=== PATIENT | female | born 1990 | race Caucasian/White ===

== ENCOUNTER → 2019-09-02 11:37 | Outpatient (BNVA) | payer OTHER, MEDICAID, SELFPAY | PROVIDERS: Family Provider Family Medicine; PCP Family Medicine; Visit Provider Nurse Practitioner Family | DX: N39.0 Urinary tract infection, site not specified (principal); N94.9 Unspecified condition associated with female genital organs and menstrual cycle; N76.0 Acute vaginitis | CPT/HCPCS: 80053; 81000; 87086; 87491; 87591; 87661 ==

== ENCOUNTER 2019-11-15 14:35 | Inpatient (IN) | payer BC, MEDICAID, SELFPAY ==
[2019-11-15] VITALS (19 sets, daily range): BP systolic 0–141; BP diastolic 0–79; PULSE 61–92; RESP 16–18; TEMP 36.7–36.9; O2SAT 98; BMI 32.2
[2019-11-15] MEDS: lactated ringers 1,000 ML 999 ML IV (16:30)
[2019-11-15 16:31] LABS: Basophils % 0.4 %; Eosinophils # 0.1 10^3/uL (0.0-0.8); Eosinophils % 0.5 %; Hematocrit 41.8 % (37.0-47.0); Hemoglobin 13.7 g/dL (11.5-15.3); Lymphocytes # 2.4 10^3/uL (0.8-4.8); Lymphocytes % 24.5 %; Mean Corpuscular HGB Conc 32.8 g/dL (30.0-36.0); Mean Corpuscular Hemoglobin 29.8 pg (28.0-34.0); Mean Corpuscular Volume 91.1 fL (81-99); Mean Platelet Volume 11.8 fL (7.4-10.4); Monocytes # 0.8 10^3/uL (0.2-0.9); Monocytes % 7.5 %; Neutrophils # 6.66 10^3/uL (1.8-7.7); Neutrophils % 66.8 %; Nucleated Red Blood Cells % 0 %; Platelet Count 231 10^3/cmm (130-400); Red Blood Count 4.59 10^6/uL (4.1-5.3); Red Cell Distribution Width 12.3 % (12.1-15.1)
[2019-11-15] MEDS: oxytocin 30 UNIT/500 ML BAG 600 UNIT IV (17:05)
[2019-11-15] MEDS: lidocaine 2% INJ 20 mL INJECTION (17:06)
--- NOTE | 2019-11-15 17:13 | PM.DELIVERY ---
Delivery Note: Date of delivery: November 15, 2019 Pre-Delivery Course: The patient had routine care at [facility]. She has blood type O+ antibody negative, rubella immune, GC chlamydia negative, hepatitis B surface antigen negative, hepatitis C antibody negative, HIV negative. She was GBS negative. There were no complications during the . Delivery: Normal spontaneous vaginal delivery This is a 29-year-old G4, P2102 at 38 weeks 2 days gestation who presented to labor and delivery complaining of contractions. The patient has had a prior section for breech presentation and also a 5 years ago. She was scheduled for repeat on the . When she presented she was 3 cm 50% effaced ballotable with regular contractions approximately every 2 to 3 minutes. I was in [place] at the time and the left for [place]. On recheck an hour later the patient had slight change she was now 3 to 4 cm and 60% effaced. She was complaining of the contractions being stronger. Decision was made to go ahead and proceed with repeat section as soon as I arrived at the hospital. The patient had spontaneous rupture of membranes with thin meconium less than 1 hour prior to delivery. She then made rapid change and by the time I reached the hospital she was . She had a normal spontaneous vaginal delivery of a viable female infant weight 2555 g, 5 pounds 10 ounces. Apgars 8 and 9. The was suctioned at delivery and placed on the mother's chest. The cord was clamped and cut. The placenta was delivered grossly intact and normal to inspection. There was a left labial laceration that was sutured using 3-0 chromic. Mother and were doing well after delivery. Estimated blood loss 150 mL. A&P Assessment and plan (1) , delivered: Routine care Status: Acute Coding Level of Care Code Acute Property Management Accountant for Chg Fwd Diagnoses , delivered O34.219
--- NOTE | 2019-11-15 17:53 | PC.NURSE ---
1620 PT STATES POSSIBLE LEAKING FLUID, VE DONE, VAGINAL VAULT WET NOT BAG OF FLUID FELT, POSSIBLE LEAKING.
--- NOTE | 2019-11-15 18:49 | PC.NURSE ---
1830 PT UP TO BATHROOM AND THEN MOVED UP TO 206, ORIENTED TO ROOM, CALL LIGHT AND WILL GO OVER PP PACK SHORTL WITH HER.
[2019-11-16 00:45] VITALS: BP 128/72; PULSE 72; RESP 16
[2019-11-16 03:30] VITALS: BP 108/64; PULSE 64; RESP 16
[2019-11-16 05:34] LABS: Hematocrit 39.8 % (37.0-47.0); Hemoglobin 12.7 g/dL (11.5-15.3); Mean Corpuscular HGB Conc 31.9 g/dL (30.0-36.0); Mean Corpuscular Hemoglobin 29.5 pg (28.0-34.0); Mean Corpuscular Volume 92.3 fL (81-99); Mean Platelet Volume 11.9 fL (7.4-10.4); Platelet Count 218 10^3/cmm (130-400); Red Blood Count 4.31 10^6/uL (4.1-5.3); Red Cell Distribution Width 12.4 % (12.1-15.1); White Blood Count 13.7 10^3/uL (4.0-10.0)
[2019-11-16] MEDS: docusate sodium 100 mg Capsule PO (10:01)
[2019-11-16] MEDS: prenatal vitamin Capsule 1 CAP PO (10:01)
[2019-11-16 10:17] VITALS: BP 108/70; PULSE 82; RESP 16; TEMP 36.8
--- NOTE | 2019-11-16 12:39 | P.DS_ITS ---
Discharge Providers Date of Admission: 11/15/19 14:35 Date of Discharge: November 16, 2019 Attending Provider at Admission: Elida Peters MD Attending Provider at Discharge: Elida Peters MD Primary Care Provider: Shane Lazo MD Diagnoses at Discharge Discharge Diagnosis (1) , delivered: Status: Acute Hospital Course Hospital Course: This is a 29-year-old G4 now P3 who presented to labor and delivery complaining of contractions. She was a prior section and prior with plans for a repeat section. However her labor progressed rather quickly and she had a vaginal delivery of a viable female . Mother and infant did well after delivery. Mother was ambulating, tolerating a regular diet, had good pain control, had decreased vaginal bleeding and was requesting discharge home Physical Exam Const: COMMON NORMALS: no acute distress, patient oriented x3 and alert GENERAL APPEARANCE: cooperative and comfortable HENMT: COMMON NORMALS: normocephalic and atraumatic HEAD & SCALP: normocephalic and atraumatic Eye: COMMON NORMALS: Equal, round and reactive pupils present and EOMs intact bilaterally PUPIL: Yes Equal, round and reactive pupils present Chest: COMMONS NORMALS: normal inspection of the chest Resp: COMMON NORMALS: normal respiratory effort and No retractions Cardio: COMMON NORMALS: regular rate and regular rhythm RATE: regular rate RHYTHM: regular rhythm GI: COMMON NORMALS: non-tender and no masses INSPECTION: Yes other (Fundus firm U- 3) Extremity: GENERAL: No calf tenderness and No edema Neuro: COMMON NORMALS: patient oriented x3 SENSORIUM/ORIENTATION: Yes alert Discharge Data Data Completed and Pending: Labs from last 24 hours 11/16/19 11/15/19 05:00 16:15 WBC 13.7 H 10.0 RBC 4.31 4.59 Hgb 12.7 13.7 Hct 39.8 41.8 MCV 92.3 91.1 MCH 29.5 29.8 MCHC 31.9 32.8 RDW 12.4 12.3 Plt Count 218 231 MPV 11.9 H 11.8 H Neut % (Auto) 66.8 Lymph % (Auto) 24.5 [place] % (Auto) 7.5 Eos % (Auto) 0.5 Baso % (Auto) 0.4 Neut # (Auto) 6.66 Lymph # (Auto) 2.4 [place] # (Auto) 0.8 Eos # (Auto) 0.1 Baso # (Auto) 0.0 Nucleated RBC % (a uto) 0 Nucleated RBCs # 0.0 Vitals: Last Vital Signs Temp 98.2 F 11/16/19 10:17 Pulse 82 11/16/19 10:17 Resp 16 11/16/19 10:17 BP 108/70 11/16/19 10:17 Pulse Ox 98 11/15/19 20:30 Discharge Plan Discharge Patient Disposition: Home Condition: Stable Prescriptions: Continued prenat.vits,elena,[id number] Tablet 1 tab PO DAILY RF: 0 Discharge Orders: Discharge Order (Routine); Ordered 11/16/19 Ordered By: Elida Peters Discharge Diet: Usual diet Discharge Activity: Limit activity as instructed Discharge Attestations Time Spent in Discharge Care*: less than 30 min Quality Metrics Clinical Quality Measures During this hospital stay, did patient experience: None Coding Level of Care Code Acute Medical Radiation Dosimetrist for Nathalie Fwd Diagnoses , delivered O38.034
[2019-11-16 17:59] VITALS: BP 112/76; PULSE 91; RESP 16; TEMP 36.9; O2SAT 98
[2019-11-16 18:33] VITALS: BP 112/76; PULSE 91; RESP 16; TEMP 36.9; O2SAT 98
== END 2019-11-16 18:45 | disposition home or self-care (01) | DRG 807 ==
PROVIDERS: Admitting Provider Family Medicine; Family Provider Family Medicine; PCP Family Medicine; Visit Provider Family Medicine
DX: O34.219 Maternal care for unspecified type scar from previous cesarean delivery (principal); Z37.0 Single live birth; Z3A.38 38 weeks gestation of pregnancy; O77.0 Labor and delivery complicated by meconium in amniotic fluid; O70.0 First degree perineal laceration during delivery
CPT/HCPCS: 12345; 36415; 59025; 85025; 85027; 99211; G0379

== ENCOUNTER 2021-02-18 13:02 | Emergency (ER) | payer BC, MEDICAID, SELFPAY ==
[2021-02-18 13:39] VITALS: BP 121/84; PULSE 82; RESP 18; TEMP 36.7; O2SAT 99; BMI 27.4
[2021-02-18 14:54] LABS: Add Urine Microscopic? YES; Bilirubin Urine Neg (Negative); Blood Urine 3+ (Negative); Glucose Urine UA Norm (Normal); HCG Qualitative Urine. Positive (Negative); Ketones Urine Negative (Negative); Leukocyte Esterase Urine Negative (Negative); Nitrate Urine Negative (Negative); Protein Urine Neg (Negative); Specific Gravity, Urine 1.005 (1.005-1.030); Urine Appearance Clear (CLEAR); Urine Color Colorless (Yellow); Urobilinogen Urine Norm (Negative); pH Urine 7 (5-7)
[2021-02-18 15:04] LABS: Add Urine Culture? No; Bacteria Urine TRACE /hpf; Squamous Epithelial Cell Urine 0-4 /hpf (0-5)
--- NOTE | 2021-02-18 15:30 | W.ED.FEMALGU ---
HPI - Female Genitourinary General: Chief complaint: Urogenital-Female Stated complaint: vaginal bleeding Time Seen by Provider: 02/18/21 15:30 History of Present Illness: HPI Narrative: Ms. Wolfe is a 30-year-old lady without significant past medical history presents emergency department due to concern for vaginal bleeding during . She reports 5 prior pregnancies and did have prior miscarriage with one of them, no other complications with the other pregnancies. Last menstrual period was sometime at the end of November no she is unsure of exactly what day. She did have a positive sometime at the start of January. Starting last night had cramping associated with vaginal bleeding. Overall this is light and she is only soaked through 2 pads today. No associated lightheadedness, infectious symptoms, or changes in health. No other specific exacerbating or alleviating factors identified. Date of Last Menstrual Period: 12/23/20 Review of Systems General: Reports: 10 or more systems reviewed and unremarkable except in HPI and below PFSH ED PFSH: Social History Smoking and tobacco status: never smoked Female Reproductive History: Date of last menstrual period: 12/23/20 Physical Exam Narrative: EXAM NARRATIVE: GENERAL/CONSTITUTIONAL - well-appearing. No acute distress. Eyes -no scleral icterus, no conjunctival injection ENMT - Atraumatic external nose and ears. Moist mucous membranes NECK - supple. trachea midline CARDIOVASCULAR - regular rate and regular rhythm. Normal peripheral perfusion. RESPIRATORY -clear to auscultation bilaterally. No retractions or accessory muscle use. ABDOMEN/GI - Nontender/Nondistended. No right or left lower quadrant tenderness. No tenderness to percussion or evidence of peritonitis PELVIC - performed with managed services sales consultant present. Normal external genitalia. Speculum exam performed with small amount of venous bleeding present, cervical os appears open with small amounts of mucus/blood/clots/tissue present. MSK - Extremities without obvious deformity or tenderness to palpation SKIN - Warm, Dry NEURO - alert and appropriately oriented. Moves all extremities equally. Course ED course: - Patient was seen and evaluated by me at bedside - Patient placed on cardiac monitors, IV access obtained - Initial evaluation notable for no acute distress, nontoxic appearance. Benign abdominal exam. - Labs notable for normal hemoglobin. hCG is elevated. Urinalysis without evidence of urinary tract infection. - Ebama-vf-kaur ultrasound performed without definitive gestational sac identified, there does appear to be mixed echogenic debris within the uterus, no evidence of free fluid. - Given pelvic exam findings suggestive of incomplete in combination with benign abdominal exam I do not feel that formal ultrasound is needed at this time. Patient has close follow-up. I explained need for trending of hCG - Upon serial reexamination after treatment the patient was similar - Based on patient history, evaluation, labs, and imaging as interpreted the most likely cause of the patient's condition is incomplete - The results of ED evaluation were discussed with the patient including prescriptions and/or symptomatic cares (if applicable) including appropriate and responsible use, followup plan, and return precautions. The patient verbalized understanding and felt safe for discharge. - Patient discharged in satisfactory condition. Vital Signs: Vital signs: Vital Signs Temperature 98.1 F 02/18/21 13:39 Pulse Rate 81 02/18/21 17:27 Respiratory Rate 16 02/18/21 15:46 Blood Pressure 121/73 02/18/21 17:27 Pulse Oximetry 98 02/18/21 17:27 MDM - Female Medical Records: Attestation: I reviewed the patient's medical records. Lab Data: Attestation: I reviewed the patient's lab results. Labs: Lab Results 02/18/21 02/18/21 02/18/21 14:00 14:00 15:48 Hgb Hct HCG, Qual Positive H (Negative) Ser , Paul i-Qnt Urine Color Colorless (Yellow) Urine Appearance Clear (CLEAR) Urine pH 7 (5-7) Ur Specific Gravit y 1.005 (1.005-1.030) Urine Protein Neg (Negative) Urine Glucose (UA) Norm (Normal) Urine Ketones Negative (Negative) Urine Blood 3+ H (Negative) Urine Nitrate Negative (Negative) Urine Bilirubin Neg (Negative) Urine Urobilinogen Norm mg/dL mg/dL (Negative) Ur Leukocyte Jenn ase Negative (Negative) Urine RBC 5-10 /hpf H /hpf (0-2) Urine WBC None /hpf /hpf (0-5) Ur Squamous Epith Cells 0-4 /hpf H /hpf (0-5) Amorphous Sediment Not Reportable Urine Bacteria Trace /hpf /hpf (NONE) Blood Type O Positive Rho(D) Type Positive 02/18/21 02/18/21 15:48 15:48 Hgb 14.4 g/dL g/dL (11.5-15.3) Hct 44.4 % % (37.0-47.0) HCG, Qual Ser , Paul i-Qnt 3649.00 mIU/mL mI U/mL Urine Color Urine Appearance Urine pH Ur Specific Gravit y Urine Protein Urine Glucose (UA) Urine Ketones Urine Blood Urine Nitrate Urine Bilirubin Urine Urobilinogen Ur Leukocyte Jenn ase Urine RBC Urine WBC Ur Squamous Epith Cells Amorphous Sediment Urine Bacteria Blood Type Rho(D) Type Discharge Plan Discharge Patient Disposition: Home Clinical Impression: Incomplete miscarriage Condition: Stable Prescriptions: No Action Vitamin Plus Low Iron 27 mg iron- 1 mg tablet 1 tab PO BEDTIME RF: 0 Discharge Orders: Discharge ED (Routine); Ordered 02/18/21 Ordered By: Rony Vaughan Referrals: Shane Lazo MD [Primary Care Provider] - Discharge Diet: Usual diet Discharge Activity: Resume usual activity Patient Instructions: Miscarriage (ED) Activity Restrictions/Additional Instructions: Thank you for visiting the emergency department. You were seen and evaluated for vaginal bleeding during . It appears that you have had a miscarriage with open cervical os and passage of products of conception. You still require follow-up with an ampoule filler as discussed. Please call them on Sunday. Return to the emergency department for worsening symptoms or anything else that you are concerned about and feel needs emergency department evaluation. Coding Level of Care Code ED Assistant Construction Superintendent for Nathalie Dolan
[2021-02-18 15:46] VITALS: BP 118/82; PULSE 80; RESP 16; O2SAT 97
[2021-02-18 16:06] LABS: Hematocrit 44.4 % (37.0-47.0); Hemoglobin 14.4 g/dL (11.5-15.3)
[2021-02-18 17:27] VITALS: BP 121/73; PULSE 81; O2SAT 98
== END 2021-02-18 17:27 | disposition home or self-care (01) ==
PROVIDERS: Emergency Provider Emergency Medicine; PCP Family Medicine
DX: O03.4 Incomplete spontaneous abortion without complication (principal)
CPT/HCPCS: 36415; 81001; 81025; 84702; 85014; 85018; 86900; 87210; 99283

== ENCOUNTER 2022-01-18 12:01 | Inpatient (IN) | payer BC, MEDICAID, SELFPAY ==
[2022-01-18] VITALS (46 sets, daily range): BP systolic 87–129; BP diastolic 49–86; PULSE 62–98; RESP 15; TEMP 35.5–36.8; O2SAT 98–100; BMI 30.5
--- NOTE | 2022-01-18 12:17 | US_ITS ---
WS: [id number] Obstetrical ultrasound, limited. HISTORY: Evaluate for demise. COMPARISON: 10/06/2021. Single intrauterine gestation is present in breech position. The cervix is partially obscured by the fetus but does appear closed. No cardiac activity or movement is identified. On several images there does appear to be body w all edema and thickening of the soft tissues. No significant amount of amniotic fluid. There is one s jennifer maximal pocket of fluid measuring 15 mm. US/US OB limited [id number] IMPRESSION: 1. demise. No cardiac activity or movement is identified. 2. Breech. 3. Severe oligohydramnios. Patient's nurse was present during the examination and aware of report.
[2022-01-18 13:16] LABS: Basophils # 0.1 10^3/uL (0.0-0.1); Basophils % 0.5 %; Eosinophils # 0.1 10^3/uL (0.0-0.8); Eosinophils % 0.6 %; Hemoglobin 12.9 g/dL (11.5-15.3); Lymphocytes # 2.1 10^3/uL (0.8-4.8); Lymphocytes % 22.2 %; Mean Corpuscular HGB Conc 33.1 g/dL (30.0-36.0); Mean Corpuscular Volume 90.7 fl (81-99); Mean Platelet Volume 11.2 fL (7.4-10.4); Monocytes # 0.6 10^3/uL (0.2-0.9); Monocytes % 6.7 %; Neutrophils # 6.44 10^3/uL (1.8-7.7); Neutrophils % 69.5 %; Nucleated Red Blood Cells % 0 %; Platelet Count 222 10^3/cmm (130-400); Red Cell Distribution Width 13.2 % (12.1-15.1); White Blood Count 9.3 10^3/uL (4.0-10.0)
[2022-01-18] MEDS: oxytocin 30 UNIT/500 ML BAG IV (13:24)
[2022-01-18] MEDS: dextrose 5%-lactated ringers 1,000 ML 125 ML IV (13:24)
--- NOTE | 2022-01-18 15:45 | ANES.PREANE2 ---
Pre-Anesthetic Assessment Height/Weight: Height 1.63 m Weight 80.739 kg Temp Pulse Resp BP Pulse Ox O2 Del Method 97.3 F L 74 15 93/54 99 01/18/22 12:10 01/18/22 15:39 01/18/22 12:16 01/18/22 15:39 01/18/22 15:38 01/18/22 11:45 Familial anesthetic complications: none Was Beta Navid taken within 24 hours: N/A Was Clonidine taken within 24 hours: N/A Social No alcohol and No tobacco Exam alert, oriented x 3, clear to auscultation bilaterally and regular rate & rhythm Airway Submandibular: within normal limits Cervical ROM: within normal limits Mallampati: Class II Dentition: full Anesthetic Plan ASA status: 2 Anesthesia: Regional (specify below) (labor epidural) Other: demise Medications/Allergies Home Medications Medication Instructions Recorded Confirmed Last Taken Type vitamin with calcium 1 tab PO BEDTIME 02/18/21 02/18/21 02/17/21 History no.72-iron 27 mg-folic acid 1 mg tablet ( Vitamins Plus Low Iron) Allergies Allergy/AdvReac Type Severity Reaction Status Date / Time No Known Allergies Allergy Verified 01/18/22 13:38 Current Medications Generic Name Dose Route Start Last Admin Trade Name Freq PRN Reason Stop Dose Admin Dextrose/Lactated Ringer's 1,000 mls @ 125 mls/hr 01/18/22 12:30 01/18/22 13:24 Dextrose 5%-Lactated Ringers IV 125 mls/hr .Q8H FARNAZ Administration Oxytocin 30 unit in 500 mls @ 1 mls/hr 01/18/22 12:30 01/18/22 14:56 Pitocin IV 7 milliunit/min .Q24H FARNAZ 7 mls/hr Titration Protocol 1 MILLIUNIT/MIN PFSH Anesthesia Social History Smoking and tobacco status: never smoked Female Reproductive History Date of last menstrual period: 12/23/20 : 6 Data Anesthesia : 01/18/22 12:27 Short CBC 01/18/22 Range/Units 12:27 WBC 9.3 (4.0-10.0) 10^3/uL Hgb 12.9 (11.5-15.3) g/dL Hct 39.0 (37.0-47.0) % MCV 90.7 (81-99) fl Plt Count 222 (130-400) 10^3/cmm Neut % (Auto) 69.5 % Neut # (Auto) 6.44 (1.8-7.7) 10^3/uL Cardiac Studies: No Data to Display
--- NOTE | 2022-01-18 16:29 | P.HP_ITS ---
Providers/Chief Complaint Admitting Physician: Tee Bales MD Primary Care Provider: Shane Lazo MD Chief Complaint: demise HPI MEDICAL APPOINTMENT CLERK History of Present Illness Abbey Wolfe is a 31 year old female 6 para 3-1-1-3 at 37 weeks estimated gestational age who presented to my office today complaining that she had not felt the baby move in a day. As a part of her evaluation no heart tones were noted. I then performed a bedside ultrasound which did not demonstrate any heart tones. Also demonstrated the baby was in breech position. Due to the patient's history of a , we discussed the option for performing a versus an induction. The patient was notified, and arrangements were made for the patient to be induced. Due to her history of C- section, we chose to induce her with Pitocin. The patient also mentioned that she wanted permanent sterilization earlier in her . She has made it very clear that she continues to desire permanent sterilization despite the devastating outcome of this Present Details : 6 Para: 4 Date of Last Menstrual Period: 12/23/20 Calculated Date of Delivery: 09/29/21 Gestational Age Based on Last Menstrual Period: 56 Labs Rubella: Immune RPR: Negative GBS: Negative Review of Systems General: Reports: 10 or more systems reviewed and unremarkable except in HPI and below Const: Reports: fatigue; Denies: fever(s) Eyes: Denies: change in vision Card: Denies: chest pain Musc: Reports: back pain Elvis/Lymph: Denies: easy bruising Medications/Allergies Home Medications Medication Instructions Recorded Confirmed Last Taken Type vitamin with calcium 1 tab PO BEDTIME 02/18/21 02/18/21 02/17/21 History no.72-iron 27 mg-folic acid 1 mg tablet ( Vitamins Plus Low Iron) Allergies Allergy/AdvReac Type Severity Reaction Status Date / Time No Known Allergies Allergy Verified 01/18/22 13:38 PFSH MEDICAL APPOINTMENT CLERK PFSH: Surgical History (Updated 01/18/22 @ 16:39 by Tee Bales MD) Previous section Social History Smoking and tobacco status: never smoked Vitals/I&O/Wt Last Vital Signs Temp 97.3 F L 01/18/22 12:10 Pulse 76 01/18/22 16:26 Resp 15 01/18/22 12:16 BP 119/71 01/18/22 16:26 Pulse Ox 100 01/18/22 15:53 O2 Del Method 01/18/22 11:45 01/18/22 01/18/22 01/18/22 06:59 14:59 22:59 Intake Total 8.500 / 8.500 Balance 8.500 / 8.500 Weight last 48 hrs Weight 178 lb Physical Exam Const: COMMON NORMALS: patient oriented x3 and alert HENMT: COMMON NORMALS: moist oral mucous membranes HEAD & SCALP: normal to inspection Chest: COMMONS NORMALS: normal inspection of the chest Resp: COMMON NORMALS: clear to auscultation bilaterally AUSCULTATION: clear to auscultation bilaterally Cardio: COMMON NORMALS: regular rate and regular rhythm RATE: regular rate RHYTHM: regular rhythm GI: INSPECTION: Yes normal to inspection and Yes other (Gravid) Extremity: COMMON NORMALS: normal to inspection GENERAL: Yes edema (Trace) Neuro: COMMON NORMALS: patient oriented x3, moves all extremities and no sensory deficits noted SENSORIUM/ORIENTATION: Yes alert Psych: COMMON NORMALS: mental status grossly normal Skin: COMMON NORMALS: no rashes or lesions noted GENERAL SKIN EXAM: no rashes or lesions noted Urinary Catheter Management: Butler: Cath Placed During This Visit: yes Urinary Catheter Date of Insertion: 01/18/22 Urinary Catheter Time of Insertion: 16:07 Data : 01/19/22 05:39 A&P Assessment and plan (1) 37 weeks gestation of : (2) demise > 22 weeks, delivered, current hospitalization: We will proceed with a Pitocin induction. Ultrasound did show some skin sloughing, so I does discussed with the patient and her family that the baby may have some breakdown. Pitocin has been ramped up. An amniotomy has been performed. Meconium was noted. The patient is either natalee or complete breech, and I anticipate we will perform a vaginal breech delivery. (3) Breech presentation: (4) Sterilization consult: We discussed the patient's desire for permanent sterilization earlier in her . At that time she elected to proceed with a tubal ligation. A consent form was signed. We once again reviewed the risks of a tubal ligation including the risks of bleeding, infection, and damage intra-abdominal organs. We also discussed a 1 and 200 chance of becoming again, and the increased risk of an ectopic despite a successful tubal ligation. Attestations Medical Necessity Statement*: Routine hospital stay for vaginal delivery and care is anticipated. Coding Level of Care Code Acute Hospice Volunteer Coordinator for Chg Fwd Exam Comprehensive Diagnoses 37 weeks gestation of Z3A.37 demise > 22 weeks, delivered, current hospitalization O36.4XX0 Breech presentation O32.1XX0 Sterilization consult Z30.09
--- NOTE | 2022-01-18 17:13 | P.PCNOB_ITS ---
Delivery Note: Date of delivery: January 18, 2022 Pre-delivery diagnoses: 31-year-old 6 at 37 weeks estimated gestational age with demise Post-delivery diagnoses: Status post breech delivery of a male who suffered demise Delivering Physician: Tee Bales Estimated blood loss (mL): 50 Pre-Delivery Course: The patient presented to the hospital after being noted to have a demise my office. She was placed on Pitocin. An epidural was placed. An amniotomy was performed. The patient then progressed to complete without difficulty. Her was unremarkable. Her blood type was O+. Her antibody screen was negative. Her glucose screen was 117. She was GBS negative. Rubella was found to be immune. The remainder of her labs were within normal limits. Her anatomic survey performed at 20 weeks was within normal limits. Delivery: DELIVERY: The patient progressed to complete without difficulty. She delivered a male with a weight of 4 pounds 14 ounces.. The baby was delivered from the complete breech position without difficulty and placed on the mother's abdomen. The cord was then clamped and cut. There was no nuchal cord. Thick meconium was noted. The was noted to have some sloughing skin of his scrotum as well as on his trunk. The placenta and 3 vessel cord were delivered intact shortly thereafter. The perineum and vaginal vault were carefully examined. No lacerations were noted. Both the mother was in stable condition. Cord blood was largely coagulated blood but was obtained for typing. Please see nurses notes for all measurements of the infant. The did not have any obvious abnormalities with exception of skin sloughing on the trunk and the scrotum. The placenta, umbilical cord, and the was examined carefully to look for potential causes of the demise, and none were found. Post-Delivery Status: Good A&P Assessment and plan (1) 37 weeks gestation of : (2) Breech delivery: I anticipate the mother will have an unremarkable course. She continues to desire a tubal ligation. I discussed options, alternatives, as well as risks of a tubal ligation with the patient. She assures me that this is the right choice for her regardless of the demise. I discussed all options with the mother and her family. They are aware that we can get Miguel, their , with a mortuary, or also consider having a autopsy. At this time I am going to let them have some space and give them the opportunity to decide what they want to do later. Coding Level of Care Code Acute Fire Code Inspector for Chg Fwd Diagnoses 37 weeks gestation of Z3A.37 Breech delivery O32.1XX0
--- NOTE | 2022-01-18 17:32 | ANES.PROC ---
Anesthesia Procedures Procedure/Date: 01/18/22 Epidural: Time Out Performed: Yes Consents Signed: Procedure Consent Consent: requested by attending/covering physician, from patient, risks and benefits reviewed and patient agrees to proceed Lumbar Level: L4-L5 Epidural position: sitting Epidural procedure: sterile prep of area, 1% lidocaine to numb the area, 18 g needle, neg for paresthesia, test dose given (5mls 2% lido), placed PCEA, no systemic response, sterile dressing applied and 0.2% Ropiavacaine @ mls/hr (13) Additional Comments: ESTUARDO at 5cm, cath at 10cm
--- NOTE | 2022-01-18 17:33 | ANE.PACU2 ---
Inpatient post-anesthesia follow up: Airway intact: Yes Vital signs: Temperature 97.3 F Pulse Rate 79 Respiratory Rate 15 Blood Pressure 115/71 Pulse Oximetry 100 Oxygen Delivery Me thod Room Air Oxygen Flow Rate Fraction of Inspir ed Oxygen Hydration adequate: Yes Nausea and vomiting: No Pain level: 2 Mental status: Baseline
--- NOTE | 2022-01-18 18:25 | PC.NURSE ---
Neetu, from lab contacted by this RN to notify her that baby demise cord blood was sent down. Order was filed under mothers account. CHERRIE DANIELS
--- NOTE | 2022-01-18 18:47 | PC.NURSE ---
Wolfe baby boy demise measurements: weight 4#14oz, length 18.5 , head 12.5 chest 11 AR RN
--- NOTE | 2022-01-18 18:49 | PC.NURSE ---
Mother educated on demise paperwork by this RN. CHERRIE RN
--- NOTE | 2022-01-18 19:11 | PC.NURSE ---
[facility] contacted by this RN per mother's choice for services for baby boy. CHERRIE DANIELS
[2022-01-18] MEDS: docusate sodium 100 mg Capsule PO (20:10)
[2022-01-18] MEDS: ibuprofen 800 mg tablet PO (20:11)
[2022-01-18] MEDS: benzocaine-menthol 78 gm Canister 1 SPRAY TOPICAL (20:11)
[2022-01-19] VITALS (17 sets, daily range): BP systolic 97–126; BP diastolic 52–85; PULSE 54–85; RESP 14–18; TEMP 36.2–36.8; O2SAT 96–100
--- NOTE | 2022-01-19 01:59 | PC.NURSE ---
[facility] left unit with Baby Christopher Wolfe at 0134 for transport to home at pts request.
[2022-01-19 05:55] LABS: Hemoglobin 13.4 g/dL (11.5-15.3); Mean Corpuscular HGB Conc 33.5 g/dL (30.0-36.0); Mean Corpuscular Hemoglobin 30.5 pg (28.0-34.0); Mean Corpuscular Volume 91.1 fl (81-99); Platelet Count 221 10^3/cmm (130-400); Red Blood Count 4.39 10^6/uL (4.1-5.3); Red Cell Distribution Width 13.3 % (12.1-15.1); White Blood Count 11.4 10^3/uL (4.0-10.0)
[2022-01-19] MEDS: ibuprofen 800 mg tablet PO ×2 (09:46→13:44)
--- NOTE | 2022-01-19 10:45 | PC.NURSE ---
Pt to OR for tubal ligation per stretcher and surgery crew.
--- NOTE | 2022-01-19 11:18 | P.DS_ITS ---
Discharge Providers UNDER WATER ASSISTANT Date of Admission: 01/18/22 12:01 Date of Discharge: 01/19/22 Attending Provider at Admission: Tee Bales MD Attending Provider at Discharge: Tee Bales MD Primary Care Provider: Shane Lazo MD Diagnoses at Discharge Discharge Diagnosis (1) 37 weeks gestation of : Status: Acute (2) demise > 22 weeks, delivered, current hospitalization: Status: Acute (3) Breech presentation: Status: Acute (4) Sterilization consult: Details from hospital stay: I discussed with the patient at length my concern about her having a tubal ligation after having the demise. She was very clear that she had had the plans to do this tubal ligation amount of what and that the circumstances surrounding this delivery do not change her mind. I also encouraged her to wait 6 weeks to have a tubal ligation to give her a chance to think. She once again declined stating that she was competent this is the right thing for her to do regardless of the circumstances surrounding her delivery. Status: Acute Reason for Visit Reason for Visit: demise Hospital Course Hospital Course The patient presented to the hospital for induction due to a demise at 37 weeks estimated gestational age. Her induction was initiated with Pitocin. An epidural was placed. An amniotomy was performed. An unremarkable breech delivery occurred. There was no obvious cause for the demise. The following day, the patient had a tubal ligation. Information Peripartum Data: Delivery Method: Vaginal Physical Exam Narrative: The patient is alert. She appears comfortable. Her heart has a regular rate and rhythm with no murmurs appreciated. Lungs are clear to auscultation bilaterally. Her fundus is firm and below the umbilicus. Urinary Catheter Management: [place]: Cath Placed During This Visit: yes Urinary Catheter Date of Insertion: 01/18/22 Urinary Catheter Time of Insertion: 16:07 Discharge Data Studies Completed and Pending Completed Studies During Hospitalization Category Date Time Status US OB limited [id number] Stat Ultrasound 01/18/22 12:17 Completed Radiology Impressions Obstetrics Ultrasound 01/18/22 12:17 IMPRESSION: 1. demise. No cardiac activity or movement is identified. 2. Breech. 3. Severe oligohydramnios. Patient's nurse was present during the examination and aware of report. Laboratory Results WBC 11.4 10^3/uL (4.0-10.0) H 01/19/22 05:39 RBC 4.39 10^6/uL (4.1-5.3) 01/19/22 05:39 Hgb 13.4 g/dL (11.5-15.3) 01/19/22 05:39 Hct 40.0 % (37.0-47.0) 01/19/22 05:39 MCV 91.1 fl (81-99) 01/19/22 05:39 MCH 30.5 pg (28.0-34.0) 01/19/22 05:39 MCHC 33.5 g/dL (30.0-36.0) 01/19/22 05:39 RDW 13.3 % (12.1-15.1) 01/19/22 05:39 Plt Count 221 10^3/cmm (130-400) 01/19/22 05:39 MPV 11.0 fL (7.4-10.4) H 01/19/22 05:39 Neut % (Auto) 69.5 % 01/18/22 12: Lymph % (Auto) 22.2 % 01/18/22 12: [place] % (Auto) 6.7 % 01/18/22 12: Eos % (Auto) 0.6 % 01/18/22 12: Baso % (Auto) 0.5 % 01/18/22 12: Neut # (Auto) 6.44 10^3/uL (1.8-7.7) 01/18/22 12: Lymph # (Auto) 2.1 10^3/uL (0.8-4.8) 01/18/22 12:27 [place] # (Auto) 0.6 10^3/uL (0.2-0.9) 01/18/22 12: Eos # (Auto) 0.1 10^3/uL (0.0-0.8) 01/18/22 12: Baso # (Auto) 0.1 10^3/uL (0.0-0.1) 01/18/22 12:27 Nucleated RBC % (auto) 0 % 01/18/22 12: Nucleated RBCs # 0.0 /100WBC 01/18/22 12:27 Procedures Performed Breech vaginal delivery minilaparotomy bilateral tubal ligation Vitals Last Vital Signs Temp 97.2 F L 01/19/22 11:14 Pulse 66 01/19/22 11:14 Resp 18 01/19/22 11:14 BP 102/60 01/19/22 11:14 Pulse Ox 98 01/19/22 11:14 O2 Del Method 01/19/22 11:14 Discharge Plan Discharge Patient Disposition: Home Condition: Stable Prescriptions: New ibuprofen 800 mg Tablet 800 mg PO TID Qty: 45 0RF hydrocodone-acetaminophen 5-325 mg Tablet 1 tab PO Q6H PRN (Reason: Moderate To Severe Pain) Qty: 10 0RF Continued Vitamin Plus Low Iron 27 mg iron- 1 mg tablet 1 tab PO BEDTIME Discharge Orders: Discharge Order (Routine); Ordered 01/19/22 Ordered By: Tee Bales Referrals: Tee Bales MD [Physician] - 1 week (May keep appt she already has with me.) Discharge Diet: Usual diet Discharge Activity: Limit activity as instructed Patient Instructions: Depression (DC), Stillbirth (DC), Bleeding (DC), Preeclampsia and Eclampsia After Delivery (GEN), Tubal Ligation (DC), Hemorrhage (DC), OB Discharge Report, OB Food/Drug Interaction Guide, OB Care at Home, Opioid Safety, OB Home Care, OB Vaginal Deliveries Discharge Attestations UNDER WATER ASSISTANT Time Spent in Discharge Care*: less than 30 min Coding Level of Care Code Acute Special Education Instructor for Chg Fwd Diagnoses 37 weeks gestation of Z3A.37 demise > 22 weeks, delivered, current hospitalization O36.4XX0 Breech presentation O32.1XX0 Sterilization consult Z30.09
[2022-01-19] MEDS: sodium chloride 0.9% 1,000 ML 30 ML IV (11:26)
--- NOTE | 2022-01-19 11:27 | ANES.PREANE2 ---
Pre-Anesthetic Assessment Height/Weight: Height 1.63 m Weight 80.739 kg Temp Pulse Resp BP Pulse Ox O2 Del Method 97.2 F L 66 18 102/60 98 01/19/22 11:14 01/19/22 11:14 01/19/22 11:14 01/19/22 11:14 01/19/22 11:14 01/19/22 11:14 Preop Diagnosis: tubal Operation Date: 01/19/22 11:30 Proposed Procedures p Bilateral Tubal Ligation(Bilateral) - Tee Bales MD Familial anesthetic complications: none Was Beta Navid taken within 24 hours: N/A Was Clonidine taken within 24 hours: N/A Last intake: Intake Last Liquid Date 01/19/22 Last Liquid Time 02:30 Last Solid Date 01/18/22 Last Solid Time 22:00 Social No alcohol and No tobacco Exam alert, oriented x 3, clear to auscultation bilaterally and regular rate & rhythm Airway Submandibular: within normal limits Cervical ROM: within normal limits Mallampati: Class II Dentition: full History/ROS No significant history except as noted Anesthetic Plan ASA status: 2 Anesthesia: General Other: 1 day Medications/Allergies Home Medications Medication Instructions Recorded Confirmed Last Taken Type vitamin with calcium 1 tab PO BEDTIME 02/18/21 02/18/21 02/17/21 History no.72-iron 27 mg-folic acid 1 mg tablet ( Vitamins Plus Low Iron) hydrocodone 5 mg-acetaminophen 325 1 tab PO Q6H PRN Moderate To 01/19/22 Unknown Rx mg tablet Severe Pain #10 tabs ibuprofen 800 mg tablet 800 mg PO TID #45 tabs 01/19/22 Unknown Rx Allergies Allergy/AdvReac Type Severity Reaction Status Date / Time No Known Allergies Allergy Verified 01/18/22 13:38 Current Medications Generic Name Dose Route Start Last Admin Trade Name Freq PRN Reason Stop Dose Admin Benzocaine 1 spray 01/18/22 17:30 01/18/22 20:11 Benzocaine-Menthol 78 Gm Canister TOPICAL 1 spray PRN PRN Administration PAIN Docusate Sodium 100 mg 01/18/22 18:00 01/18/22 20:10 Docusate Sodium 100 Mg Capsule PO 100 mg BID FARNAZ Administration Sodium Chloride 1,000 mls @ 30 mls/hr 01/19/22 11:30 01/19/22 11:26 Sodium Chloride 0.9% IV 01/20/22 11:29 30 mls/hr .Q24H FARNAZ Administration Ibuprofen 800 mg 01/18/22 21:00 01/19/22 09:46 Ibuprofen 800 Mg Tablet PO 800 mg TID FARNAZ Administration PFSH Anesthesia Surgical History (Updated 01/18/22 @ 16:39 by Tee Bales MD) Previous section Social History Smoking and tobacco status: never smoked Female Reproductive History Date of last menstrual period: 12/23/20 : 6 Data Anesthesia : 01/19/22 05:39 Short CBC 01/18/22 01/19/22 Range/Units 12:27 05:39 WBC 9.3 11.4 H (4.0-10.0) 10^3/uL Hgb 12.9 13.4 (11.5-15.3) g/dL Hct 39.0 40.0 (37.0-47.0) % MCV 90.7 91.1 (81-99) fl Plt Count 222 221 (130-400) 10^3/cmm Neut % (Auto) 69.5 % Neut # (Auto) 6.44 (1.8-7.7) 10^3/uL Cardiac Studies: No Data to Display
--- NOTE | 2022-01-19 13:20 | ANE.PACU2 ---
Inpatient post-anesthesia follow up: Airway intact: Yes Vital signs: Temperature 98.2 F Pulse Rate 55 Respiratory Rate 16 Blood Pressure 116/73 Pulse Oximetry 97 Oxygen Delivery Me thod Room Air Oxygen Flow Rate 6 Fraction of Inspir ed Oxygen Hydration adequate: Yes Nausea and vomiting: No Pain level: 2 Mental status: Baseline
[2022-01-19] MEDS: HYDROcodone-acetaminophen 5-325 mg Tablet PO (13:44)
--- NOTE | 2022-01-30 03:52 | PM.OP ---
Operative Report Date of procedure: December Pre-op diagnosis: female desiring sterilization Post-op diagnosis: Same Procedure done: minilaparotomy bilateral tubal ligation using a modified Steve technique Specimens removed/disposition: Bilateral fallopian tube segments with the right segment being tagged Pathology: Bilateral fallopian tube segments with the right segment being tagged Surgeon: Tee Bales Anesthesia: General Estimated blood loss (mL): 5 Procedure: The patient was brought back to the operating room where anesthesia was found to be adequate. 10 mL of 0.5% bupivacaine was then used to pre-anesthetize the area just inferior to the umbilicus. A #15 blade was then used to make a 3 cm transverse incision just inferior to the umbilicus. I then dissected down to the underlying subcutaneous tissue until arriving at the fascia. The fascia was then nicked with the scalpel. The fascial incision was extended manually. I identified the fundus of the uterus and followed it to the left fallopian tube. The fallopian tube was then followed to the fimbria. The tube was then ligated, cut, and cauterized in a modified [place] fashion using 0 chromic. The right fallopian tube was then identified and followed through to the fimbria. It was ligated, cut, and cauterized in similar fashion. The right fallopian tube was tagged. Both fallopian tubes had excellent hemostasis. The fascia was reapproximated using 0 Vicryl in running stitch. The subcutaneous tissue was carefully examined and no further bleeding was noted. The skin was then reapproximated using 4-0 Vicryl in a running subcuticular stitch. A sterile dressing was placed. All counts were correct x2. The patient was moved to the recovery room in stable condition.
== END 2022-01-19 15:15 | disposition home or self-care (01) | DRG 798 ==
PROVIDERS: Admitting Provider Family Medicine; PCP Family Medicine; Visit Provider Family Medicine
PROC: 0UB70ZZ Excision of Bilateral Fallopian Tubes, Open Approach (ICD-10-PCS; CPT 58605; principal; 2022-01-19 11:30)
DX: O36.4XX0 Maternal care for intrauterine death, not applicable or unspecified (principal); Z37.1 Single stillbirth; O32.1XX0 Maternal care for breech presentation, not applicable or unspecified; O34.219 Maternal care for unspecified type scar from previous cesarean delivery; O77.0 Labor and delivery complicated by meconium in amniotic fluid; Z3A.37 37 weeks gestation of pregnancy; Z87.59 Personal history of other complications of pregnancy, childbirth and the puerperium; Z30.2 Encounter for sterilization
CPT/HCPCS: 12345; 36415; 51702; 59409; 76815; 85025; 85027; 88302; J1100; J2250; J2405; J2590; J2704; J2710; J3010; J3490; J7030; J7121

== ENCOUNTER 2022-01-19 21:41 | Emergency (ER) | payer BC, MEDICAID, SELFPAY ==
[2022-01-19 22:07] VITALS: BP 113/75; PULSE 72; RESP 15; TEMP 36.1; O2SAT 97; BMI 30.5
[2022-01-19 23:25] LABS: Basophils % 0.3 %; Hemoglobin 13.3 g/dL (11.5-15.3); Lymphocytes # 1.8 10^3/uL (0.8-4.8); Lymphocytes % 13.9 %; Mean Corpuscular HGB Conc 31.7 g/dL (30.0-36.0); Mean Corpuscular Hemoglobin 30.4 pg (28.0-34.0); Mean Corpuscular Volume 95.9 fl (81-99); Monocytes # 0.6 10^3/uL (0.2-0.9); Monocytes % 4.9 %; Neutrophils # 10.45 10^3/uL (1.8-7.7); Neutrophils % 80.2 %; Nucleated Red Blood Cells % 0 %; Platelet Count 256 10^3/cmm (130-400); Red Blood Count 4.38 10^6/uL (4.1-5.3); Red Cell Distribution Width 13.2 % (12.1-15.1)
[2022-01-19 23:33] LABS: HCG, Serum Qual Positive (Negative)
[2022-01-19 23:43] LABS: Alanine Aminotransferase 24 U/L (0-33); Albumin Level 3.2 g/dL (3.5-5.2); Alkaline Phosphatase 112 U/L (35-105); Anion Gap 15.1 (5-19); Aspartate Amino Transferase 20 U/L (0-32); Blood Urea Nitrogen 9 mg/dL (6-20); Calcium 8.6 mg/dL (8.5-10.5); Carbon Dioxide 20 mmol/L (22-29); Chloride 101 mmol/L (98-107); Globulin 2.9 g/dL (1.3-4.6); Glomerular Filtration Rate 73.5 mL/min (90-130); Glucose 186 mg/dL (65-115); Lipase 19 U/L (13-60); Osmolality Calculated 278 mOsm/kg (285-295); Potassium 4.1 mmol/L (3.5-5.1); Sodium 132 mmol/L (136-145); Total Bilirubin 0.2 mg/dL (0.15-1.2); Total Protein 6.1 g/dL (6.6-8.7)
[2022-01-20 00:32] VITALS: RESP 14
[2022-01-20] MEDS: ondansetron 2 mg/ML SDV 2 mL 4 MG IVP (00:32)
[2022-01-20] MEDS: morphine 4 mg/mL SDV 1 mL IVP (00:32)
[2022-01-20 00:39] LABS: Urine Appearance Clear (CLEAR); Urine Color Yellow (Yellow); pH Urine 6 (5-7)
[2022-01-20 00:40] LABS: Add Urine Microscopic? YES; Bilirubin Urine Neg (Negative); Blood Urine 2+ (Negative); Glucose Urine UA 2+ (Normal); Ketones Urine 1+ (Negative); Leukocyte Esterase Urine Negative (Negative); Nitrate Urine Negative (Negative); Protein Urine Neg (Negative); Renal Epithelial Cells Urine 0-1 /hpf; Squamous Epithelial Cell Urine 0-4 /hpf (0-5); Urobilinogen Urine Norm (Negative); WBC Urine 0-4 /hpf (0-5)
[2022-01-20 00:41] LABS: Add Urine Culture? No
[2022-01-20 00:42] VITALS: BP 123/73; PULSE 73; RESP 14; O2SAT 100
--- NOTE | 2022-01-20 00:43 | W.ED.PREGNAN ---
HPI - General: Chief complaint: OB/Uterine Contractions Stated complaint: ABD Pain Time Seen by Provider: 01/19/22 23:34 Source: patient Mode of arrival: ambulatory Limitations: no limitations History of Present Illness: 31-year-old female who had a demise at 37 weeks states delivered the fetus 2 days ago and had a tubal ligation yesterday. States that today she has felt a pressure and felt like something was coming out of her vagina she denies any bleeding denies any passing blood clots states her pain is a 4 out of 10 she denies any worsening improving factors. Date of Last Menstrual Period: 12/23/20 Associated symptoms: Reports abdominal pain; Deny dysuria or headache(s) Review of Systems Const: Denies: fever(s), chills, body aches or change in appetite Eyes: Denies: blurry vision or eye discomfort ENMT: Denies: throat pain or dental pain Card: Denies: chest pain Resp: Denies: dyspnea GI: Reports: abdominal pain : Denies: dysuria Musc: Denies: neck pain or back pain Skin/Breast: Denies: rash Neuro: Denies: headache(s) Psych: Denies: depression Elvis/Lymph: Denies: easy bruising All/Imm: Denies: urticaria PFSH ED PFSH: Surgical History Previous section Social History Smoking and tobacco status: never smoked Female Reproductive History: Date of last menstrual period: 12/23/20 Physical Exam Const: COMMON NORMALS: no acute distress, patient oriented x3 and healthy appearing HENMT: COMMON NORMALS: normocephalic and atraumatic HEAD & SCALP: normocephalic and atraumatic Eye: COMMON NORMALS: Equal, round and reactive pupils present and EOMs intact bilaterally PUPIL: Yes Equal, round and reactive pupils present Neck/C-Spine: COMMON NORMALS: full ROM and supple Chest: COMMONS NORMALS: normal inspection of the chest and normal palpation of entire chest wall Resp: COMMON NORMALS: normal respiratory effort, No retractions, No use of accessory muscles and clear to auscultation bilaterally AUSCULTATION: clear to auscultation bilaterally Cardio: COMMON NORMALS: regular rate, regular rhythm and No murmurs present (Cardio) RATE: regular rate RHYTHM: regular rhythm GI: COMMON NORMALS: Normal to inspection, nondistended, normoactive bowel sounds present, Soft to palpation, non-tender and no masses PALPATION: Yes Soft to palpation : OTHER: No blood in the vaginal vault no blood coming from the cervix cervix appears closed Extremity: COMMON NORMALS: normal to inspection and full ROM Neuro: COMMON NORMALS: patient oriented x3, moves all extremities and no focal motor deficits Psych: COMMON NORMALS: mental status grossly normal, Normal thought process present and cooperative THOUGHT PROCESS: Normal thought process present Skin: COMMON NORMALS: no rashes or lesions noted and no wounds GENERAL SKIN EXAM: no rashes or lesions noted Course Vital Signs: Vital signs: Vital Signs Temperature 97.0 F L 01/19/22 22:07 Pulse Rate 72 01/19/22 22:07 Respiratory Rate 14 01/20/22 00:32 Blood Pressure 113/75 01/19/22 22:07 Pulse Oximetry 97 01/19/22 22:07 Oxygen Delivery Me thod 01/19/22 22:07 MDM - OB/Uterine Contractions Medical Decision Making Patient presents here with abdominal pain is likely postop pain she has sensation of something in her vagina vaginal exam here is normal no signs of retained product no bleeding she stable for discharge she has follow-up with Dr. Bales next week she is return if worsening. Lab Data : 01/19/22 23:07 01/19/22 23:07 Laboratory Results WBC 13.0 10^3/uL (4.0-10.0) H 01/19/22 23:07 RBC 4.38 10^6/uL (4.1-5.3) 01/19/22 23:07 Hgb 13.3 g/dL (11.5-15.3) 01/19/22 23:07 Hct 42.0 % (37.0-47.0) 01/19/22 23:07 MCV 95.9 fl (81-99) D 01/19/22 23:07 MCH 30.4 pg (28.0-34.0) 01/19/22 23:07 MCHC 31.7 g/dL (30.0-36.0) D 01/19/22 23:07 RDW 13.2 % (12.1-15.1) 01/19/22 23:07 Plt Count 256 10^3/cmm (130-400) 01/19/22 23:07 MPV 11.0 fL (7.4-10.4) H 01/19/22 23:07 Neut % (Auto) 80.2 % 01/19/22 23:07 Lymph % (Auto) 13.9 % 01/19/22 23:07 [place] % (Auto) 4.9 % 01/19/22 23:07 Eos % (Auto) 0.0 % 01/19/22 23:07 Baso % (Auto) 0.3 % 01/19/22 23:07 Neut # (Auto) 10.45 10^3/uL (1.8-7.7) H 01/19/22 23:07 Lymph # (Auto) 1.8 10^3/uL (0.8-4.8) 01/19/22 23:07 [place] # (Auto) 0.6 10^3/uL (0.2-0.9) 01/19/22 23:07 Eos # (Auto) 0.0 10^3/uL (0.0-0.8) 01/19/22 23:07 Baso # (Auto) 0.0 10^3/uL (0.0-0.1) 01/19/22 23:07 Nucleated RBC % (auto) 0 % 01/19/22 23:07 Nucleated RBCs # 0.0 /100WBC 01/19/22 23:07 Sodium 132 mmol/L (136-145) L 01/19/22 23:07 Potassium 4.1 mmol/L (3.5-5.1) 01/19/22 23:07 Chloride 101 mmol/L (98-107) 01/19/22 23:07 Carbon Dioxide 20 mmol/L (22-29) L 01/19/22 23:07 Anion Gap 15.1 (5-19) 01/19/22 23:07 BUN 9 mg/dL (6-20) 01/19/22 23:07 Creatinine 0.9 mg/dL (0.5-0.9) 01/19/22 23:07 GFR Calculation 73.5 mL/min (90-130) L 01/19/22 23:07 Glucose 186 mg/dL (65-115) H 01/19/22 23:07 Calculated Osmolality 278 mOsm/kg (285-295) L 01/19/22 23:07 Calcium 8.6 mg/dL (8.5-10.5) 01/19/22 23:07 Total Bilirubin 0.2 mg/dL (0.15-1.2) 01/19/22 23:07 AST 20 U/L (0-32) 01/19/22 23:07 ALT 24 U/L (0-33) 01/19/22 23:07 Alkaline Phosphatase 112 U/L (35-105) H 01/19/22 23:07 Total Protein 6.1 g/dL (6.6-8.7) L 01/19/22 23:07 Albumin 3.2 g/dL (3.5-5.2) L 01/19/22 23:07 Globulin 2.9 g/dL (1.3-4.6) 01/19/22 23:07 Lipase 19 U/L (13-60) 01/19/22 23:07 HCG, Qual Positive (Negative) H 01/19/22 23:07 Urine Color Yellow (Yellow) 01/20/22 00:13 Urine Appearance Clear (CLEAR) 01/20/22 00:13 Urine pH 6 (5-7) 01/20/22 00:13 Ur Specific [place] 1.020 (1.005-1.030) 01/20/22 00:13 Urine Protein Neg (Negative) 01/20/22 00:13 Urine Glucose (UA) 2+ (Normal) H 01/20/22 00:13 Urine Ketones 1+ (Negative) H 01/20/22 00:13 Urine Blood 2+ (Negative) H 01/20/22 00:13 Urine Nitrate Negative (Negative) 01/20/22 00:13 Urine Bilirubin Neg (Negative) 01/20/22 00:13 Urine Urobilinogen Norm mg/dL (Negative) 01/20/22 00:13 Ur Leukocyte Esterase Negative (Negative) 01/20/22 00:13 Urine RBC 5-10 /hpf (0-2) H 01/20/22 00:13 Urine WBC 0-4 /hpf (0-5) H 01/20/22 00:13 Ur Squamous Epith Cells 0-4 /hpf (0-5) H 01/20/22 00:13 Ur Renal Epithelial Cell 0-1 /hpf 01/20/22 00:13 Amorphous Sediment Not Reportable 01/20/22 00:13 Urine Bacteria None /hpf (NONE) 01/20/22 00:13 Discharge Plan Discharge Patient Disposition: Home Clinical Impression: Abdominal pain Condition: Stable Prescriptions: No Action Vitamin Plus Low Iron 27 mg iron- 1 mg tablet 1 tab PO BEDTIME ibuprofen 800 mg Tablet 800 mg PO TID Qty: 45 0RF hydrocodone-acetaminophen 5-325 mg Tablet 1 tab PO Q6H PRN (Reason: Moderate To Severe Pain) Qty: 10 0RF Discharge Orders: Discharge ED (Routine); Ordered 01/20/22 Ordered By: Long Montes Referrals: Shane Lazo MD [Primary Care Provider] - Discharge Diet: Advance as tolerated Discharge Activity: Resume usual activity Patient Instructions: Abdominal Pain (ED) Coding Level of Care Code ED Business Analysis Professional for Chg Fwd Exam Comprehensive
[2022-01-20 01:15] VITALS: BP 123/73; PULSE 73; RESP 14; O2SAT 100
== END 2022-01-20 01:19 | disposition home or self-care (01) ==
PROVIDERS: Emergency Provider Emergency Medicine; PCP Family Medicine
DX: O90.89 Other complications of the puerperium, not elsewhere classified (principal); R10.9 Unspecified abdominal pain
CPT/HCPCS: 36415; 80053; 81001; 83690; 84703; 85025; 96374; 96375; 99284; J2270; J2405